=== PATIENT | female | born 1975 | race Caucasian/White ===

== ENCOUNTER 2017-02-11 23:12 | Emergency (ER) | payer MEDICARE, MEDICAID ==
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
== END 2017-02-11 23:25 | disposition home or self-care (01) ==
LOC: ER 23:12
DX: S20.219A Contusion of unspecified front wall of thorax, initial encounter (principal); F41.9 Anxiety disorder, unspecified; F17.210 Nicotine dependence, cigarettes, uncomplicated; Y04.8XXA Assault by other bodily force, initial encounter